=== PATIENT | male | born 1995 | race Caucasian/White ===

== ENCOUNTER 2018-12-08 02:19 | Emergency (ER) | payer OTHER ==
[~2018-12-08] VITALS: Ht 167.6 cm; Wt 72.6 kg
[2018-12-08 02:20] VITALS: BP 148/94
--- NOTE | 2018-12-08 02:20 | NUR ---
PT SWATHIA TO ED BED 11, TRANSFERED TO BED AND PLACED ON MONITOR AT THIS TIME.
--- NOTE | 2018-12-08 02:20 | NUR ---
Sandi ohover in [facility] - 12/08/18 at 0229 by [email or web address]
--- NOTE | 2018-12-08 02:25 | NUR ---
EDMD EVALUATING PT AT BEDSIDE
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
--- NOTE | 2018-12-08 02:50 | NUR ---
PT AMBULATED TO RESTROOM WITHOUT INCIDENCE ESCORTED BY PD
[2018-12-08 03:00] VITALS: BP 135/80
--- NOTE | 2018-12-08 03:00 | NUR ---
Patient discharged with v/s stable. Written and verbal after care instructions given and explained. Patient alert, oriented and verbalized understanding of instructions. Ambulatory with steady gait. All questions addressed prior to discharge. ID band removed. Patient advised to follow up with PMD. Opportunity to ask questions provided and answered.
--- NOTE | 2018-12-08 03:00 | NUR ---
PT DISCHARGE PENDING LAB DRAW FROM CORRECTIONAL FACILITY NURSE
== END 2018-12-08 03:00 | disposition home or self-care (01) ==
LOC: MED 02:19
DX: S60.511A Abrasion of right hand, initial encounter (principal); F10.10 Alcohol abuse, uncomplicated; Z02.89 Encounter for other administrative examinations; V43.52XA Car driver injured in collision with other type car in traffic accident, initial encounter; Y93.89 Activity, other specified; Y92.488 Other paved roadways as the place of occurrence of the external cause; Y99.8 Other external cause status
CPT/HCPCS: 99281; 99283